=== PATIENT | male | born 1985 | race Caucasian/White ===

== ENCOUNTER 2018-10-25 23:15 | Emergency (ER) | payer OTHER, BC ==
[~2018-10-25] VITALS: Ht 188 cm; Wt 145.1 kg
[2018-10-25] MEDS ORDERED: ONDANSETRON PF 4 MG/2 ML VIAL. IV ONE (23:45)
[2018-10-25] MEDS ORDERED: MORPHINE SULFATE 4 MG/ML VIAL. IV ONE (23:45)
--- NOTE | 2018-10-26 01:24 | PHYS DOC ---
Past Medical History Past Medical History: No Pertinent History Past Surgical History: Tonsillectomy Alcohol Use: None Drug Use: None Adult General Chief Complaint Chief Complaint: MECHANICAL FALL HPI HPI Patient is a 33 year old male presents to the emergency room with complaints of low back and tailbone pain after he slipped and fell while getting out of his semitruck at work this evening. Patient states that the incident happened at approximately 2245. He denies any head, neck, or upper back pain. Patient denies hitting his head or any loss of consciousness. Patient also denies any nausea, vomiting, saddle anesthesia, or loss of bowel or bladder control. Currently he rates his pain as 8 out of 10 on the pain scale. Review of Systems Review of Systems Constitutional: Denies fever or chills [] Eyes: Denies change in visual acuity, redness, or eye pain [] HENT: Denies nasal congestion or sore throat [] Respiratory: Denies cough or shortness of breath [] Cardiovascular: No additional information not addressed in HPI [] GI: Denies abdominal pain, nausea, or vomiting : Denies loss of bladder control Musculoskeletal: See HPI Integument: Denies rash or skin lesions [] Neurologic: Denies headache, focal weakness or sensory changes [] Complete systems were reviewed and found to be within normal limits, except as documented in this note. Current Medications Current Medications Current Medications Medications (Trade) Dose Ordered Sig/Manpreet Start Time Stop Time Status Last Admin Dose Admin Morphine Sulfate (Morphine Sulfate) 4 mg 1X ONCE 10/25/18 23:45 10/25/18 23:46 DC 10/26/18 00:00 4 MG Ondansetron HCl (Zofran) 4 mg 1X ONCE 10/25/18 23:45 10/25/18 23:46 DC 10/26/18 00:00 4 MG Allergies Allergies Allergies Coded Allergies Type Severity Reaction Last Updated Verified No Known Drug Allergies 10/25/18 No Physical Exam Physical Exam Constitutional: Well developed, well nourished, no acute distress, non-toxic appearance, obese. [] HENT: Normocephalic, atraumatic, bilateral external ears normal, nose normal. [] Eyes: conjunctiva normal, no discharge. [] Neck: Normal range of motion Cardiovascular:Heart rate regular rhythm, no murmur [] Lungs & Thorax: Bilateral breath sounds clear to auscultation [] Skin: Warm, dry, no erythema, no rash. [] Back: lumbar and sacral bony tenderness to palpation, no crepitus or palpable deformity, bilateral lumbar paraspinal tenderness Extremities: No cyanosis, no clubbing, ROM intact, no edema. [] Neurologic: Alert and oriented X 3, normal motor function, normal sensory function, no focal deficits noted. [] Psychologic: Affect normal, judgement normal, mood normal. [] Current Patient Data Vital Signs Vital Signs Date Time Temp Pulse Resp B/P (MAP) Pulse Ox O2 Delivery O2 Flow Rate FiO2 10/26/18 01:06 76 20 97 10/25/18 23:15 98.5 144/67 (92) Room Air 98.5 EKG EKG [] Radiology/Procedures Radiology/Procedures PROCEDURE: LUMBAR SPINE 2-3V Examination: 2 views of the lumbar spine and sacrum and coccyx HISTORY: History of fall, tailbone pain COMPARISON: None available FINDINGS: The lumbar vertebral body heights are maintained. No evidence of listhesis identified. The facets are well aligned.There is cortical step-off identified in the coccyx likely fracture IMPRESSION: Cortical step-off identified in the coccyx likely mild displaced fracture. Correlate for point tenderness. [] Course & Med Decision Making Course & Med Decision Making Pertinent Labs and Imaging studies reviewed. (See chart for details) [] Dragon Disclaimer Dragon Disclaimer This electronic medical record was generated, in whole or in part, using a voice recognition dictation system. Departure Departure Impression: Primary Impression: Back pain Additional Impressions: Fall from stationary vehicle Fracture of coccyx, initial encounter for closed fracture Disposition: 01 HOME, SELF-CARE Condition: STABLE Referrals: NO PCP (PCP) Patient Instructions: Tailbone Injury, [id number] Additional Instructions: Fill prescription and use as directed. Sit on a pillow recommend a donut pillow. Follow up with work comp doctor in 1-2 days. Return to the ER if symptoms worsen. Scripts Hydrocodone Bit/Acetaminophen (HYDROCODONE-APAP 5-325 ) 1 Tab Tablet 1 TAB PO PRN Q6HRS PRN for PAIN for 5 Days, #20 TAB 0 Refills Prov: STEFANIE GILBERT APRN 10/26/18 Problem Qualifiers Primary Impression: Back pain Back pain location: low back pain Chronicity: acute Back pain laterality: bilateral Sciatica presence: without sciatica Qualified Codes: M54.5 - Low back pain Additional Impressions: Fall from stationary vehicle Encounter type: initial encounter Qualified Codes: W17.89XA - Other fall from one level to another, initial encounter STEFANIE GILBERT APRN Oct 26, 2018 01:24
--- NOTE | 2018-10-26 01:37 | RAD ---
Examination: 2 views of the lumbar spine and sacrum and coccyx HISTORY: History of fall, tailbone pain COMPARISON: None available FINDINGS: The lumbar vertebral body heights are maintained. No evidence of listhesis identified. The facets are well aligned.There is cortical step-off identified in the coccyx likely fracture IMPRESSION: Cortical step-off identified in the coccyx likely mild displaced fracture. Correlate for point tenderness. Electronically signed by: Kin Hickman MD (10/26/2018 1:33 AM) [facility]
[2018-10-26 01:51] VITALS: BP 158/70
[2018-10-26] MEDS ORDERED: HYDR-2761 PO (01:53)
== END 2018-10-26 02:05 | disposition home or self-care (01) ==
LOC: ER 23:15
DX: S32.2XXA Fracture of coccyx, initial encounter for closed fracture (principal); M54.5 Low back pain; W17.89XA Other fall from one level to another, initial encounter; Y93.89 Activity, other specified; Y92.89 Other specified places as the place of occurrence of the external cause; Y99.8 Other external cause status
CPT/HCPCS: 72100; 72220; 96374; 96375; 99283; J2270; J2405